=== PATIENT | male | born 1970 | race Caucasian/White ===

== ENCOUNTER 2017-02-07 10:59 | Emergency (ER) | payer OTHER ==
[2017-02-07 12:39] LABS: Hematocrit 39 % (42-52); Hemoglobin 12.9 g/dl (14.0-18.0); Mean Corpuscular HGB Conc 33 g/dl (31-36); Mean Corpuscular Hemoglobin 31 pg (27-31); Mean Corpuscular Volume 92 fL (80-94); Mean Platelet Volume 8 um3 (7.4-10.4); Red Cell Distribution Width 14 % (10.5-15); White Blood Count 5.8 10^3/ul (3.5-10.8)
--- NOTE | 2017-02-07 12:43 | RAD ---
HISTORY: Swelling of the left ankle and foot. COMPARISON: No prior studies are available for comparison. TECHNIQUE: Multiple transverse and longitudinal ultrasound images were obtained of the veins of the right lower extremity using grayscale, color Doppler, and spectral Doppler imaging with and without compression and with augmentation. FINDINGS: VEINS: The common femoral vein, deep femoral vein and proximal portions of the femoral vein are compressible throughout their course, with normal flow on color Doppler imaging and normal response to augmentation on spectral Doppler imaging. Beginning at the distal femoral vein there is nonocclusive echogenic material along the periphery of the vessel lumen. This extends into the popliteal vein. Where visualized, the infrapopliteal veins exhibit patency. SOFT TISSUES: Grossly normal. No large popliteal fossa cyst was identified. IMPRESSION: Sonographic findings are most consistent with chronic nonocclusive thrombus (most likely "scar") from the distal femoral vein extending to the popliteal vein. If prior sonographic imaging can be made available, then a comparison can be made to more confidently comment on chronicity. The remaining visualized veins exhibited adequate patency.
[2017-02-07] MEDS ORDERED: Naproxen TAB* 250 MG PO ONE (13:02)
--- NOTE | 2017-02-07 13:09 | ED ---
Lower Extremity - HPI Summary HPI Summary: 47 male presents with complaints of left lower extremity pain from knee to ankle. Admits to swelling. 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 States pain began 2 days ago and has been worsening. Has FROM however causes pain. Worse with walking. Has been taking tylenol without relief. Is currently on coumadin daily. Denies any SOB, chest pain or other complaints at this time. No trauma or injury. Feels similar to previous DVT. 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 PMHx significant for multiple fractures of legs/back, depression and factor v. no recent long distance travel, tobacco use or bed rest. - History of Current Complaint Chief Complaint: EDExtremityLower Stated Complaint: LEFT LEG SWELLING Hx Obtained From: Patient Mechanism Of Injury: Unknown Onset of Pain: Days - 2 Onset/Duration: Days - 2 Severity Initially: Mild Severity Currently: Moderate Pain Intensity: 9 Pain Scale Used: 0-10 Numeric Timing: Constant Location: Is Discrete @ - lower left ext, knee to ankle Character Of Pain: Dull, Aching Associated Signs And Symptoms: Positive: Swelling Aggravating Factor(s): Standing, Ambulation, Movement Alleviating Factor(s): Rest, Elevation Able to Bear Weight: Yes PMH/Surg Hx/FS Hx/Imm Hx Endocrine/Hematology History: 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 Denies: Hx Diabetes Cardiovascular History: Denies: Hx Hypertension Respiratory History: Denies: Hx Asthma Musculoskeletal History: Reports: Other Musculoskeletal History Psychiatric History: Reports: Hx Anxiety, Hx Depression - Surgical History Surgery Procedure, Year, and Place: n/a - Immunization History Immunizations Up to Date: Yes Infectious Disease History: No Infectious Disease History: Denies: Traveled Outside the [place] in Last 30 Days - Family History Known Family History: Positive: None - Social History Alcohol Use: None Substance Use Type: Reports: None Smoking Status (MU): Never Smoked Tobacco Review of Systems Constitutional: Negative Cardiovascular: Negative Respiratory: Negative Positive: Arthralgia, Myalgia, Decreased ROM - left ringer Skin: Negative Neurological: Negative All Other Systems Reviewed And Are Negative: Yes Physical Exam Triage Information Reviewed: Yes Vital Signs On Initial Exam: Initial Vitals Temp Pulse Resp BP Pulse Ox 97.6 F 73 16 112/80 97 02/07/17 11:08 02/07/17 11:08 02/07/17 11:08 02/07/17 11:08 02/07/17 11:08 Vital Signs Reviewed: Yes Appearance: Positive: Well-Appearing, No Pain Distress, Well-Nourished Skin: Positive: Warm, Skin Color Reflects Adequate Perfusion, Dry. Negative: Cold, Numb, Soft, Cyanosis @, Pale, Erythema @ Head/Face: Positive: Normal Head/Face Inspection Eyes: Positive: Conjunctiva Clear ENT: Positive: Hearing grossly normal Neck: Positive: Supple, Nontender Respiratory/Lung Sounds: Positive: Clear to Auscultation, Breath Sounds Present. Negative: Decreased Breath Sounds, Rales, Rhonchi, Stridor, Wheezes Cardiovascular: Positive: Normal - 2+ pedal b/l, RRR, Pulses are Symmetrical in both Upper and Lower Extremities. Negative: Murmur, Rub Abdomen Description: Positive: Nontender, Soft Bowel Sounds: Positive: Present Musculoskeletal: Positive: Normal, Strength/ROM Intact, Pain @ - at left lower extremity with flexion and extension but able, Bruna Sign Left, Edema Left - 42cm on left leg at calf, 41cm on right. Negative: Limited @, Interruption @, Bruna Sign Right Neurological: Positive: Normal, Sensory/Motor Intact - sensation intact, Alert, Oriented to Person Place, Time, CN Intact II-III, Reflexes Intact, NV Bundle Intact Distally, Normal Gait Psychiatric: Positive: Affect/Mood Appropriate - [place] Coma Scale Coma Scale Total: 15 Diagnostics - Vital Signs Vital Signs Temp Pulse Resp BP Pulse Ox 02/07/17 11:45 97.6 F 73 16 112/80 97 02/07/17 11:08 97.6 F 73 16 112/80 97 - Laboratory Lab Results: Lab Results 02/07/17 02/07/17 Range/Units 12:00 12:00 WBC 5.8 (3.5-10.8) 10^3/ul RBC 4.20 (4.0-5.4) 10^6/ul Hgb 12.9 L (14.0-18.0) g/dl Hct 39 L (42-52) % MCV 92 (80-94) fL MCH 31 (27-31) pg MCHC 33 (31-36) g/dl RDW 14 (10.5-15) % Plt Count 203 (150-450) 10^3/ul MPV 8 (7.4-10.4) um3 Neut % (Auto) 50.6 (38-83) % Lymph % (Auto) 28.2 (25-47) % [place] % (Auto) 12.0 H (1-9) % Eos % (Auto) 7.8 H (0-6) % Baso % (Auto) 1.4 (0-2) % Absolute Neuts (auto) 3.0 (1.5-7.7) 10^3/ul Absolute Lymphs (auto) 1.6 (1.0-4.8) 10^3/ul Absolute Monos (auto) 0.7 (0-0.8) 10^3/ul Absolute Eos (auto) 0.5 (0-0.6) 10^3/ul Absolute Basos (auto) 0.1 (0-0.2) 10^3/ul Absolute Nucleated RBC 0.01 10^3/ul Nucleated RBC % 0.1 INR (Anticoag Therapy) 1.90 H (0.89-1.11) APTT 38.3 H (26.0-36.3) seconds Result Diagrams: 02/07/17 12:00 Lab Statement: Any lab studies that have been ordered have been reviewed, and results considered in the medical decision making process. - Ultrasound No standard instances Ultrasound Interpretation: Positive (See Comments) - Sonographic findings are most consistent with chronic nonocclusive thrombus (most likely "scar") from the distal femoral vein extending to the popliteal vein. If prior sonographic imaging can be made available, then a comparison can be made to more confidently comment on chronicity. The remaining visualized veins exhibited adequate patency. Ultrasound Interpretation Completed By: Radiologist Lower Extremity Course/Dx - Course Course Of Treatment: given tylenol for pain and inflammation. U/S obtained and does not appear to have any new DVT at this time. due to no known trauma x-ray not required at this time. had some relief after tylenol. told to continue and to follow up with primary care. aware of worsening signs and symptoms. return if persists or new symptoms develop. compression and ambulate. 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 If new symptoms develop or pain worsens please seek medical attention promptly and return. Take tylenol for pain/discomfort. If pain becomes unbearable take breaks and rest. Do not over use leg as this may worsen pain/condition however continue to ambulate little at a time, elevate and apply compression. U/S report: Sonographic findings are most consistent with chronic nonocclusive thrombus ( most likely "scar") from the distal femoral vein extending to the popliteal vein. If prior sonographic imaging can be made available, then a comparison can be made to more confidently comment on chronicity. The remaining visualized veins exhibited adequate patency.
[2017-02-07] MEDS ORDERED: Acetaminophen TAB* 325 MG PO ONE (13:35)
[2017-02-07 13:57] VITALS: BP 112/76
[2017-02-07 14:03] LABS: Albumin 3.8 g/dL (3.2-5.2); BUN/Creatinine Ratio 14.4 (8-20); Calcium 9.1 mg/dL (8.6-10.3); EGFR African American 116.3 (>60); EGFR Non-African American 90.4 (>60); Potassium 4.6 mmol/L (3.5-5.0); Total Bilirubin 0.4 mg/dL (0.2-1.0); Total Protein 6.8 g/dL (6.4-8.9)
== END 2017-02-07 13:55 | disposition home or self-care (01) ==
LOC: ED 10:59
DX: I82.5Z2 Chronic embolism and thrombosis of unspecified deep veins of left distal lower extremity (principal); M79.605 Pain in left leg
CPT/HCPCS: 36415; 80053; 85025; 85610; 85730; 99282; A9270-GY